=== PATIENT | male | born 1955 | race Caucasian/White ===

== ENCOUNTER 2023-06-30 09:20 | Emergency (ER) | payer MEDICARE, OTHER ==
[~2023-06-30] VITALS: Ht 177.8 cm; Wt 82.5 kg
[2023-06-30] MEDS ORDERED: CROMOLYN S20 MG/1 ML PO (09:41)
[2023-06-30 09:52] LABS: BILIRUBIN, URINE NEGATIVE (negative); BLOOD/HGB, URINE NEGATIVE (Negative); KETONE, URINE NEGATIVE (Negative); LEUK ESTERASE, URINE NEGATIVE (negative); NITRITE, URINE NEGATIVE (negative)
[2023-06-30 10:38] LABS: BASOPHILS 0.4 % (0-2); EOSINOPHILS 1.5 % (0-6); HEMATOCRIT 38.4 % (35.0-50.0); LYMPHOCYTES 26.9 % (24-44); MCH 31.7 (27-36); MCV 93.2 fl (81-99); MONOCYTES 6.2 % (0-12); PLATELET COUNT 426 K/uL (140-440); RBC 4.12 M/ul (4.3-5.7); RDW 12.8 (10.5-15.0)
[2023-06-30 10:49] LABS: ANION GAP 12.9 (7-21); BUN/CREATININE RATIO 9.78 (6.0-28.6); CREATININE, SERUM 0.92 mg/dL (0.70-1.30); POTASSIUM 3.9 mmol/L (3.5-5.1)
[2023-06-30] MEDS ORDERED: FLOMAX0.4 MG PO (11:16)
[2023-06-30 12:16] VITALS: BP 145/91
== END 2023-06-30 12:10 | disposition home or self-care (01) ==
LOC: ED 09:20
PROVIDERS: Emergency Medicine
DX: N32.0 Bladder-neck obstruction (principal); Z79.899 Other long term (current) drug therapy
CPT/HCPCS: 36415; 51702; 51798; 80048; 81003; 84153; 85025; 99283